=== PATIENT | male | born 1955 | race Caucasian/White ===

== ENCOUNTER 2021-11-29 15:23 | Outpatient (CLI) | payer MEDICARE, OTHER, SELFPAY ==
--- NOTE | ~2021-11-29 | XR_ITS ---
EXAMINATION: XR chest 2V DATE: 11/29/2021 15:57 INDICATION: Left-sided intercostal pain with bruising post recent fall. TECHNIQUE: PA and lateral views of the chest were obtained. COMPARISON: Chest radiograph dated 06/12/2006 FINDINGS: Mildly increased interstitial opacities with some bronchial wall thickening the bilateral lower lung zones. No pleural effusion or pneumothorax. The cardiomediastinal silhouette is normal. Mild to moder ate thoracic spondylosis. Cholecystectomy clips in right upper quadrant. IMPRESSION: 1. Mild opacities in the bilateral lower lung zones which could represent atelectasis, bronchitis or less likely mild pulmonary edema. Reviewed, dictated and finalized at location A. [employer] IMPRESSION: 1. Mild opacities in the bilateral lower lung zones which could represent atele ctasis, bronchitis or less likely mild pulmonary edema.
--- NOTE | ~2021-11-29 | XR_ITS ---
EXAMINATION: XR abdomen/kub 1V DATE: 11/29/2021 15:57 INDICATION: Left-sided upper abdominal pain and bruising TECHNIQUE: A supine view of the abdomen on 2 radiographs was obtained. COMPARISON: None. FINDINGS: Cholecystectomy clips in right upper quadrant. Additional postoperative changes with suture lines in the right lower quadrant. Moderate to large amount of stool scattered throughout the colon. No dilate d loops of gas-filled bowel to suggest obstruction. Mild lumbar spondylosis. IMPRESSION: 1. Moderate to large amount of clot stool which could be seen with constipation. Reviewed, dictated and finalized at location A. [employer] TE[employer] IMPRESSION: 1. Moderate to large amount of clot stool which could be seen with constipation .
== END 2021-11-29 15:24 | disposition home or self-care (01) ==
PROVIDERS: PCP Internal Medicine; Visit Provider Internal Medicine
DX: R07.82 Intercostal pain (principal); R10.9 Unspecified abdominal pain; M47.816 Spondylosis without myelopathy or radiculopathy, lumbar region
CPT/HCPCS: 71046; 74018

== ENCOUNTER 2022-01-21 13:08 | Outpatient (CLI) | payer MEDICARE, OTHER, SELFPAY ==
--- NOTE | ~2022-01-21 | XR_ITS ---
EXAMINATION: XR thoracic spine 2V DATE: 01/21/2022 13:40 INDICATION: History of T3 compression fracture TECHNIQUE: AP, lateral and lateral swimmer's views of the thoracic spine were obtained. COMPARISON: 06/12/2006 FINDINGS: Vertebroplasty change is noted in the T3 vertebral body. The remaining vertebral body heigh ts are maintained. There is mild to moderate loss of intervertebral disc space height at multiple lev els in the thoracic spine. The visualized lungs are clear. Calcified atherosclerosis is noted. There is mild/moderate cervical spondylosis. IMPRESSION: 1. Thoracic vertebroplasty change and mild spondylosis without acute abnormality identified. Reviewed, dictated and finalized at location A. IMPRESSION: 1. Thoracic vertebroplasty change and mild spondylosis without acute abnormalit y identified.
== END 2022-01-21 13:09 | disposition home or self-care (01) ==
PROVIDERS: PCP Internal Medicine; Visit Provider Neurological Surgery
DX: S22.030A Wedge compression fracture of third thoracic vertebra, initial encounter for closed fracture (principal); X58.XXXA Exposure to other specified factors, initial encounter; M47.894 Other spondylosis, thoracic region
CPT/HCPCS: 72070